=== PATIENT | female | born 1985 | race African-American/Black ===

== ENCOUNTER 2018-08-01 21:56 | Emergency (ER) | payer OTHER ==
[~2018-08-01] VITALS: Ht 160 cm; Wt 72.6 kg
[2018-08-01 22:01] VITALS: BP 131/88
[2018-08-01] MEDS ORDERED: KEFLEX500 M1 PO (22:17)
[2018-08-01] MEDS ORDERED: TRAMADOL 50 MG50 MG PO (22:17)
== END 2018-08-01 22:36 | disposition home or self-care (01) ==
LOC: ER 21:56
DX: T24.201A Burn of second degree of unspecified site of right lower limb, except ankle and foot, initial encounter (principal); T31.0 Burns involving less than 10% of body surface; L03.115 Cellulitis of right lower limb; X19.XXXA Contact with other heat and hot substances, initial encounter; Y93.89 Activity, other specified; Y92.89 Other specified places as the place of occurrence of the external cause; Y99.8 Other external cause status